=== PATIENT | female | born 1990 | race African-American/Black ===

== ENCOUNTER 2016-09-16 12:48 | Emergency (ER) | payer OTHER ==
[~2016-09-16] VITALS: Ht 156.2 cm; Wt 117.9 kg
--- NOTE | 2016-09-16 13:45 | ED THROAT/DENTAL COMPLAINT ---
History of Present Illness General Chief Complaint: Sore Throat, Dental Pain Stated Complaint: SORE THROAT Source: patient, friend Exam Limitations: no limitations Vital Signs & Intake/Output Vital Signs & Intake/Output Vital Signs Date Time Temp Pulse Resp B/P B/P Pulse O2 O2 Flow FiO2 Mean Ox Delivery Rate 09/16 1252 98.2 92 18 145/88 Reconcile Medications Amoxicillin 875 MG TABLET 1 TAB PO BID strep throat Ibuprofen 800 MG TABLET 1 TAB PO Q8H PRN pain Prednisone 10 MG TABLET 1 TAB PO DAILY STREP THROAT Triage Note: PT COMPLAINS OF SORE THROAT SINCE YESTERDAY Triage Nurses Notes Reviewed? yes : No Patient currently breastfeeds: No HPI: Patient is a 26-year-old female presents complaining of sore throat since yesterday. Pain is an aching pain worsens with swallowing. Patient has not taken any medication for her symptoms. Symptoms are currently moderate to severe. Patient denies fevers, sick contacts, difficulty breathing, cough. (JONAS DUNN) Past History Travel History Traveled to [place] past 21 day No Medical History Any Pertinent Medical History? see below for history Neurological: NONE EENT: NONE Cardiovascular: NONE Respiratory: NONE Gastrointestinal: NONE Hepatic: NONE Renal: NONE Musculoskeletal: NONE Psychiatric: NONE Endocrine: NONE Blood Disorders: anemia Cancer(s): NONE SCAFFOLDING HELPER/Reproductive: NONE Surgical History Surgical History: non-contributory Psychosocial History What is your primary language Thai Tobacco Use: Never used ETOH Use: denies use Illicit Drug Use: denies illicit drug use Family History Hx Contributory? No (JONAS DUNN) Review of Systems Review of Systems Constitutional: Denies: chills, fever. EENTM: Reports: see HPI. Respiratory: Denies: cough, short of breath. Cardiovascular: Denies: chest pain. GI: Denies: abdominal pain. Musculoskeletal: Reports: no symptoms. Skin: Reports: no symptoms. Neurological/Psychological: Reports: no symptoms. Hematologic/Endocrine: Reports: no symptoms. Immunologic/Allergic: Reports: lymphadenopathy. (JONAS DUNN) Physical Exam Physical Exam General Appearance: well developed/nourished, alert, awake Head: atraumatic, normal appearance Eyes: Bilateral: normal appearance, PERRL, EOMI. Ears: Bilateral: canal normal, Tympanic normal. Nose: normal inspection Mouth/Throat: bilateral tonsillar erythema. Right tonsil 3+, no visible abscess. Neck: normal inspection, supple, bilateral anterior cervical lymphadenopathy Cardiovascular/Respiratory: normal breath sounds, regular rate/rhythm, no respiratory distress Back: normal inspection, normal range of motion Neurologic/Psych: no motor/sensory deficits, awake, alert, oriented x 3, normal gait, normal mood/affect Skin: intact, normal color, warm/dry Core Measures ACS in differential dx? No Severe Sepsis Present: No Septic Shock Present: No (JONAS DUNN) Progress Differential Diagnosis: Ludwigs angina, irma-tonsillar abscess, strep pharyngitis Plan of Care: Orders Procedure Date/time Status THROAT CULTURE W/QUICK STREP 09/16 1250 Complete Patient afebrile, nontoxic appearing, tolerating oral intake. Appears stable for discharge. (JONAS DUNN) Departure Departure Time of Disposition: 1348 Disposition: HOME OR SELF CARE Condition: Stable Clinical Impression Primary Impression: Strep throat Referrals: PATIENT HAS NO PRIMARY CARE DR (PCP/Family) Additional Instructions: Drink plenty of fluids and rest. Return to emergency department if difficulty breathing, unable to stay hydrated, or worsening of symptoms. Departure Forms: Customer Survey General Discharge Information Prescriptions: Current Visit Scripts Amoxicillin 1 TAB PO BID #20 TAB Prednisone 1 TAB PO DAILY #18 TAB Ibuprofen 1 TAB PO Q8H PRN pain #30 TAB (JONAS DUNN) PA/[employer]EARCH HOME ECONOMIST Co-Sign Statement Statement: ED Attending supervision documentation- [] I saw and evaluated the patient. I have also reviewed all the pertinent lab results and diagnostic results. I agree with the findings and the plan of care as documented in the PA's/RESEARCH HOME ECONOMIST's documentation. [X] I have reviewed the ED Record and agree with the PA's/RESEARCH HOME ECONOMIST's documentation. [] Additions or exceptions (if any) to the PAs/RESEARCH HOME ECONOMIST's note and plan are summarized below: [] (NATALIE WALLACE,LEODAN)
[2016-09-16] MEDS ORDERED: AMOXICILLIN875 M1 PO (13:51)
[2016-09-16] MEDS ORDERED: IBUPROFEN800 M1 PO (13:51)
[2016-09-16] MEDS ORDERED: PREDNISONE10 M2 PO (13:51)
== END 2016-09-16 14:00 ==
LOC: ERH 12:48
DX: J02.0 Streptococcal pharyngitis (principal)